=== PATIENT | female | born 1960 | race Caucasian/White ===

== ENCOUNTER → 2016-12-10 | Outpatient (CLI) | payer OTHER ==
--- NOTE | 2016-12-10 10:36 | RADRPT ---
EXAM DATE/TIME: 12/10/2016 10:20 [facility] COMPARISON: No previous studies available for comparison. INDICATIONS : Cough, past positive ppd. MEDICAL HISTORY : smoker SURGICAL HISTORY : None. ENCOUNTER: Initial ACUITY: 1 day PAIN SCORE: 0/10 LOCATION: Bilateral chest FINDINGS: PA and lateral views of the chest demonstrate the lungs to be symmetrically aerated without evidence of mass, infiltrate or effusion. The cardiomediastinal contours are unremarkable. Osseous structure s are intact. CONCLUSION: No acute disease. Alexi Breaux MD FACR on December 10, 2016 at 10:34 Board Certified Radiologist. This report was verified electronically.
--- NOTE | 2016-12-10 11:10 | RADRPT ---
EXAM DATE/TIME: 12/10/2016 09:06 [facility] COMPARISON: No previous studies available for comparison. INDICATIONS : Abdominal pain. MEDICAL HISTORY : Hypercholesterolemia. HIV. Neuropathy. SURGICAL HISTORY : Total knee replacement, left. Hysterectomy. Cholecystectomy. ENCOUNTER: Initial ACUITY: 3 months PAIN SCORE: 2/10 LOCATION: Abdomen. MEASUREMENTS: LIVER: 18.5 cm length COMMON DUCT: 4 mm RIGHT KIDNEY: 13.2 x 6.9 x 6.9 cm SPLEEN: 14.9 cm length FINDINGS: LIVER: Liver echotexture is heterogeneous and diffusely hyperechoic. There are no discrete space occupying l esions or biliary duct dilatation. COMMON DUCT: No intraluminal mass or stone visualized. GALLBLADDER: Contains no stones, demonstrates no wall thickening or pericholecystic fluid. A small hyperechoic no dule is seen along the anterior wall of the gallbladder. PANCREAS: The visualized portions are within normal limits. RIGHT KIDNEY: No hydronephrosis, stone or mass. A 1 cm simple cyst is seen along the lateral cortex. SPLEEN: No focal lesion. CONCLUSION: 1. Heterogeneous hyperechoic texture characteristic of steatosis. 2. Non-mobile small hyperechoic nodule in the gallbladder characteristic of a small polyp. 3. No evidence of cholelithiasis or acute process. 4. Small simple right renal cyst. Sang Graves MD on December 10, 2016 at 10:53 Board Certified Radiologist. This report was verified electronically.
== END ==
LOC: HRAD 08:35
DX: R10.84 Generalized abdominal pain (principal); R05 Cough; Z86.19 Personal history of other infectious and parasitic diseases
CPT/HCPCS: 71020; 76705

== ENCOUNTER → 2017-02-23 | Outpatient (CLI) | payer OTHER ==
[~2017-02-23] MED LIST: DIPH25TA; HIV; PRED20 PO
--- NOTE | 2017-02-23 14:14 | RADRPT ---
EXAM DATE/TIME: 02/23/2017 13:26 [facility] COMPARISON: No previous studies available for comparison. INDICATIONS : Right hip pain, no injury. MEDICAL HISTORY : None. SURGICAL HISTORY : None. ENCOUNTER: Initial ACUITY: 3 months PAIN SCORE: 5/10 LOCATION: Right proximal hip FINDINGS: A two view examination of the right hip was performed. The primary and secondary trabecular pattern of the femoral neck is intact. Moderate to severe joint space narrowing with associated osteophyte fo rmation. The acetabulum is grossly intact. CONCLUSION: 1. Moderate to severe degenerative osteoarthritis. García Hunt MD on February 23, 2017 at 14:12 Board Certified Radiologist. This report was verified electronically.
--- NOTE | 2017-02-23 14:22 | RADRPT ---
EXAM DATE/TIME: 02/23/2017 13:29 [facility] COMPARISON: No previous studies available for comparison. INDICATIONS : Right knee pain, no injury. MEDICAL HISTORY : None. SURGICAL HISTORY : None. ENCOUNTER: Initial ACUITY: 1 day PAIN SCORE: 8/10 LOCATION: Right lateral knee FINDINGS: 4 views of the right knee were performed. There is tricarparmental joint space loss with osteophyte f ormation most prominently in the medial compartment. Corticated osseous fragment along the medial sup erior patella may reflect sequela of prior injury. Mild chondrocalcinosis most prominently in the lat eral compartment. No significant suprapatellar effusion or soft tissue abnormality. CONCLUSION: 1. Tricompartmental degenerative osteoarthritis, most prominently in the medial compartment. 2. Mild chondrocalcinosis most prominently in the lateral compartment consistent with calcium crystal line deposition. García Hunt MD on February 23, 2017 at 14:12 Board Certified Radiologist. This report was verified electronically.
== END ==
LOC: HRAD 13:09
DX: M19.90 Unspecified osteoarthritis, unspecified site (principal); M25.50 Pain in unspecified joint
CPT/HCPCS: 73502; 73564

== ENCOUNTER 2017-02-25 15:46 | Emergency (ER) | payer OTHER ==
[~2017-02-25] VITALS: Ht 162.6 cm; Wt 110.0 kg
[2017-02-25 15:47] VITALS: BP 194/86; PULSE 108; RESP 20; TEMP 98.7; O2SAT 97
[2017-02-25] MEDS ORDERED: HIV (16:00)
--- NOTE | 2017-02-25 16:00 | PD ---
HPI Chief Complaint: Injury Time Seen by Provider: 15:59 Travel History International Travel<30 days: No Contact w/Intl Traveler<30days: No Traveled to known affect area: No History of Present Illness HPI 56-year-old female presents the emergency department status post fall off her porch 5 days ago. Patient states a history of total knee replacement on the left in 2008 when she lived in [place]. Patient states since she fell she's had pain with the movement of the left knee along the medial aspect, as well as in the left hip which is worse with rotation or flexion. Patient denies numbness, tingling, or back pain. Patient is able to ambulate with difficulty secondary to pain. There is no obvious loss of function. Pain currently is about an 8 out of 10 when trying to ambulate. At rest it is 4 out of 10. She has no known drug allergies PFSH Social History Alcohol Use: Yes Tobacco Use: No Substance Use: No Allergies-Medications (Allergen,Severity, Reaction): Coded Allergies: No Known Allergies (Unverified , 02/25/17) Reported Meds & Prescriptions Reported Meds & Active Scripts Active Reported Sleep Tablet (Diphenhydramine HCl) 25 Mg Tablet Unknown Dose [Hiv] Review of Systems Except as stated in HPI: all other systems reviewed are Neg General / Constitutional: No: Fever Eyes: No: Visual changes HENT: No: Headaches Cardiovascular: No: Chest Pain or Discomfort Respiratory: No: Shortness of Breath Gastrointestinal: No: Abdominal Pain Genitourinary: No: Dysuria Musculoskeletal: Positive: Myalgias, Arthralgias, Limited ROM, Pain (see history of present illness) Skin: No Rash Neurologic: No: Weakness Psychiatric: No: Depression Endocrine: No: Polydipsia Hematologic/Lymphatic: No: Easy Bruising Physical Exam Narrative GENERAL: Patient appears in mild to moderate distress. SKIN: Warm and dry. Normal color. Normal turgor. No open wounds, abrasions, or ecchymosis. HEAD: Atraumatic. Normocephalic. EYES: Pupils equal and round. No scleral icterus. No injection or drainage. ENT: No nasal bleeding or discharge. Mucous membranes pink and moist. Pharynx is clear. Airway is patent. NECK: Trachea midline. Supple and nontender. CARDIOVASCULAR: Regular rate and rhythm. RESPIRATORY: No accessory muscle use. Clear to auscultation. Breath sounds equal bilaterally. MUSCULOSKELETAL: Extremities without clubbing, cyanosis, or edema. No obvious deformities. Patient has pain with internal rotation of the lower leg along the left lateral knee. The knee itself is not tender with palpation. There is no appreciable laxity. Patient also has increased pain with rotation of the left hip medially and laterally. Again no increased pain with palpation to the greater trochanter or sacroiliac region of the hip. There is no obvious loss of function although flexion of the hip against resistance as well as lateral rotation against resistance causes pain. There is no bony lumbar pain or obvious deformity. NEUROLOGICAL: Awake and alert. No obvious cranial nerve deficits. Motor grossly within normal limits. Five out of 5 muscle strength in the arms and legs. Normal speech. PSYCHIATRIC: Appropriate mood and affect; insight and judgment normal. Data Data Last Documented VS Vital Signs Date Time Temp Pulse Resp B/P (MAP) Pulse Ox O2 Delivery O2 Flow Rate FiO2 02/25/17 15:47 98.7 108 20 194/86 (122) 97 Room Air Orders Orders Hip, Uni(Ap&Lat) W Ap Pelvis (02/25/17 16:04) Knee, Complete (4vws) (02/25/17 16:04) Ice/Cold Pack (02/25/17 16:04) Prednisone (Deltasone) (02/25/17 17:00) MDM Medical Decision Making Medical Screen Exam Complete: Yes Emergency Medical Condition: Yes Differential Diagnosis Fall. Left knee pain. Left hip pain. Left knee strain. Left hip strain. Possible fracture. Narrative Course Patient is medically stable at time of exam. X-rays of the left hip and knee are ordered. X-ray showed arthritis but no acute process per radiologist. Patient is given prednisone 40 mg by mouth now. Patient is continued on prednisone 20 mg twice a day 5 days. Patient can take her oxycodone fives which she has at home. Patient follow with her primary care physician as needed. Diagnosis Primary Impression: Fall (on) (from) other stairs and steps, initial encounter Additional Impressions: Strain of left knee Qualified Codes: S86.912A - Strain of unspecified muscle(s) and tendon(s) at lower leg level, left leg, initial encounter Strain of left hip Qualified Codes: S76.012A - Strain of muscle, fascia and tendon of left hip, initial encounter Referrals: Primary Care Physician Patient Instructions: Arthritis (ED), General Instructions, Knee Pain (ED) Additional Instructions: X-ray showed arthritis but no acute process per radiologist. Patient is given prednisone 40 mg by mouth now. Patient is continued on prednisone 20 mg twice a day 5 days. Patient can take her oxycodone fives which she has at home. Patient follow with her primary care physician as needed. Med/Other Pt SpecificInfo: Prescription(s) given Disposition: DISCHARGE HOME Condition: Stable Sonido Webber Feb 25, 2017 16:00
[2017-02-25] MEDS ORDERED: DIPH25TA (16:01)
[2017-02-25] MEDS ORDERED: PRED20 PO (16:58)
--- NOTE | 2017-02-25 16:58 | RADRPT ---
EXAM DATE/TIME: 02/25/2017 16:37 [facility] COMPARISON: No previous studies available for comparison. INDICATIONS : Left hip pain since falling 5 days ago. MEDICAL HISTORY : Hypercholesterolemia. HIV. Neuropathy. SURGICAL HISTORY : Total knee replacement, left. Hysterectomy. Cholecystectomy. ENCOUNTER: Initial ACUITY: 4 - 6 days PAIN SCORE: 10/10 LOCATION: Left hip. FINDINGS: Examination of the left hip was performed with AP Pelvis. Degenerative arthritic changes are seen in both hips, right worse than left with loss of joint space superiorly. Near [id number] articulation on the right. Otherwise, cortical margins are otherwise intact with no acute fracture. CONCLUSION: 1. Degenerative osteoarthritic changes in both hips, right worse than left. 2. No acute fracture. Parveen Chu MD on February 25, 2017 at 16:54 Board Certified Radiologist. This report was verified electronically.
--- NOTE | 2017-02-25 16:58 | RADRPT ---
EXAM DATE/TIME: 02/25/2017 16:37 [facility] COMPARISON: No previous studies available for comparison. INDICATIONS : Left hip pain since falling 5 days ago. MEDICAL HISTORY : Hypercholesterolemia. HIV. Neuropathy. SURGICAL HISTORY : Total knee replacement, left. Hysterectomy. Cholecystectomy. ENCOUNTER: Initial ACUITY: 4 - 6 days PAIN SCORE: 10/10 LOCATION: Left hip. FINDINGS: Examination of the left hip was performed with AP Pelvis. Degenerative arthritic changes are seen in both hips, right worse than left with loss of joint space superiorly. Near [id number]-[id number] articulation on the right. Otherwise, cortical margins are otherwise intact with no acute fracture. CONCLUSION: 1. Degenerative osteoarthritic changes in both hips, right worse than left. 2. No acute fracture. Parveen Chu MD on February 25, 2017 at 16:54 Board Certified Radiologist. This report was verified electronically.
--- NOTE | 2017-02-25 16:58 | RADRPT ---
EXAM DATE/TIME: 02/25/2017 16:37 [facility] COMPARISON: No previous studies available for comparison. INDICATIONS : Left hip pain since falling 5 days ago. MEDICAL HISTORY : Hypercholesterolemia. HIV. Neuropathy. SURGICAL HISTORY : Total knee replacement, left. Hysterectomy. Cholecystectomy. ENCOUNTER: Initial ACUITY: 4 - 6 days PAIN SCORE: 10/10 LOCATION: Left hip. FINDINGS: Examination of the left hip was performed with AP Pelvis. Degenerative arthritic changes are seen in both hips, right worse than left with loss of joint space superiorly. Near [id number] articulation on the right. Otherwise, cortical margins are otherwise intact with no acute fracture. CONCLUSION: 1. Degenerative osteoarthritic changes in both hips, right worse than left. 2. No acute fracture. Parveen Chu MD on February 25, 2017 at 16:54 Board Certified Radiologist. This report was verified electronically.
[2017-02-25] MEDS ORDERED: predniSONE 20 MG TAB PO ONE (17:00)
--- NOTE | 2017-02-25 17:03 | RADRPT ---
EXAM DATE/TIME: 02/25/2017 16:38 [facility] COMPARISON: No previous studies available for comparison. INDICATIONS : Left knee pain since falling 5 days ago. MEDICAL HISTORY : Hypercholesterolemia. HIV. Neuropathy. SURGICAL HISTORY : Total knee replacement, left. Hysterectomy. Cholecystectomy. ENCOUNTER: Initial ACUITY: 4 - 6 days PAIN SCORE: 7/10 LOCATION: Left knee. FINDINGS: Four view examination of the left knee demonstrates total knee arthroplasty. No fracture or effusion. CONCLUSION: Intact total knee arthroplasty without fracture or effusion. Parveen Chu MD on February 25, 2017 at 16:56 Board Certified Radiologist. This report was verified electronically.
== END 2017-02-25 17:12 | disposition home or self-care (01) ==
LOC: NEPK 15:46
DX: S86.912A Strain of unspecified muscle(s) and tendon(s) at lower leg level, left leg, initial encounter (principal); S76.012A Strain of muscle, fascia and tendon of left hip, initial encounter; Z96.652 Presence of left artificial knee joint; W19.XXXA Unspecified fall, initial encounter
CPT/HCPCS: 73502; 73564; 99283; J7512

== ENCOUNTER 2017-05-24 12:30 | Emergency (ER) | payer OTHER ==
[~2017-05-24] VITALS: Ht 162.6 cm; Wt 100.0 kg
[2017-05-24 12:32] VITALS: BP 142/72; PULSE 107; RESP 14; TEMP 98; O2SAT 97
--- NOTE | 2017-05-24 13:41 | PD ---
HPI Chief Complaint: Musculoskeletal Complaint Time Seen by Provider: 13:26 Travel History International Travel<30 days: No Contact w/Intl Traveler<30days: No Traveled to known affect area: No History of Present Illness HPI The patient was seen and examined in the presence of the nurse. This patient complains of pain in her right groin for 3 weeks. Denies injury. Symptoms severity is moderate. No alleviating factors. PFSH Past Medical History Diabetes: Yes Social History Alcohol Use: Yes Tobacco Use: No Substance Use: No Allergies-Medications (Allergen,Severity, Reaction): Coded Allergies: No Known Allergies (Unverified , 02/25/17) Reported Meds & Prescriptions Reported Meds & Active Scripts Active Prednisone 20 Mg Tab 20 Mg PO BID 5 Days Reported Sleep Tablet (Diphenhydramine HCl) 25 Mg Tablet Unknown Dose [Hiv] Review of Systems General / Constitutional: No: Fever Eyes: No: Visual changes HENT: No: Headaches Cardiovascular: No: Chest Pain or Discomfort Respiratory: No: Shortness of Breath Gastrointestinal: No: Abdominal Pain Genitourinary: No: Dysuria Musculoskeletal: Positive: Pain Skin: No Rash Neurologic: No: Weakness Psychiatric: No: Depression Endocrine: No: Polydipsia Hematologic/Lymphatic: No: Easy Bruising Physical Exam Narrative GASTROINTESTINAL: Abdomen soft, non-tender, nondistended. Positive bowel sounds. No hepato-splenomegaly, or palpable masses. No guarding. SKIN: Focused skin assessment reveals no rash or ulcers. Skin is warm and dry. Palpation shows no induration or nodules. Groin: No pulsatile mass or erythema or bruising No pelvis instability Data Data Last Documented VS Vital Signs Date Time Temp Pulse Resp B/P (MAP) Pulse Ox O2 Delivery O2 Flow Rate FiO2 05/24/17 12:40 16 05/24/17 12:32 98.0 107 142/72 (95) 97 Orders Orders Pelvis, Ap Only (Routine) (05/24/17 ) Femur (Ap & Lat/2vws) (05/24/17 ) MDM Medical Decision Making Medical Screen Exam Complete: Yes Emergency Medical Condition: Yes Medical Record Reviewed: Yes Differential Diagnosis Pelvic fracture, groin strain, hip fracture Narrative Course I have reviewed the patient's electronic medical record. I reviewed her pelvis x-ray which shows no fracture I reviewed her right femur x-rays which shows no fracture She has degenerative arthritis in the right hip On clinical basis I suspect soft tissue groin injury. Supportive care discussed The patient was advised to follow up with their physician and return if they worsen. Diagnosis Primary Impression: Right inguinal pain Additional Impression: Osteoarthritis of right hip Qualified Codes: M16.11 - Unilateral primary osteoarthritis, right hip Additional Instructions: The patient was advised to follow up with their physician and return if they worsen. Med/Other Pt SpecificInfo: Other Disposition: 01 DISCHARGE HOME Condition: Stable Jonh Storm MD May 24, 2017 13:41
--- NOTE | 2017-05-24 14:38 | RADRPT ---
EXAM DATE/TIME: 05/24/2017 14:03 [facility] COMPARISON: No previous studies available for comparison. INDICATIONS : Pain with no known injury. MEDICAL HISTORY : Asthma. SURGICAL HISTORY : None. ENCOUNTER: Initial ACUITY: 3 weeks PAIN SCORE: 9/10 LOCATION: Right Pelvis FINDINGS: No definite fractures, dislocations, lytic, or sclerotic lesions are seen. Extensive and far advanced osteoarthritis is seen in the right hip joint. There is slight osteoarthritis in the left hip joint. CONCLUSION: Osteoarthritis worse on the right. KTimur Colon MD on May 24, 2017 at 14:35 Board Certified Radiologist. This report was verified electronically.
--- NOTE | 2017-05-24 14:40 | RADRPT ---
EXAM DATE/TIME: 05/24/2017 14:04 [facility] COMPARISON: No previous studies available for comparison. INDICATIONS : Pain with no known injury. MEDICAL HISTORY : Asthma SURGICAL HISTORY : None. ENCOUNTER: Initial ACUITY: 3 weeks PAIN SCORE: 9/10 LOCATION: Right Femur. FINDINGS: There is a tiny joint effusion. Well-corticated bony densities present towards the lateral aspect of the patella has the appearance of a bipartite patella measures 1.5 cm. There is osteopenia. CONCLUSION: No definite fracture is seen for technique. KTimur Colon MD on May 24, 2017 at 14:36 Board Certified Radiologist. This report was verified electronically.
== END 2017-05-24 15:32 | disposition home or self-care (01) ==
LOC: NEPD 12:30
DX: R10.9 Unspecified abdominal pain (principal); M16.11 Unilateral primary osteoarthritis, right hip; E11.9 Type 2 diabetes mellitus without complications
CPT/HCPCS: 72170; 73552; 99284

== ENCOUNTER 2017-06-20 11:41 | Emergency (ER) | payer OTHER ==
[~2017-06-20] VITALS: Ht 162.6 cm; Wt 108.0 kg
[2017-06-20 11:44] VITALS: BP 118/74; PULSE 101; RESP 18; TEMP 98.3; O2SAT 98
--- NOTE | 2017-06-20 12:40 | PD ---
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 Patient states she was feeling patient tender when she pushed the small tray out of the way she fell forward somehow hitting her left lateral shoulder, right knee, and left knee as well. Patient now has pain in the left lateral shoulder, right knee, but not the left knee, although she is concerned about as it has been replaced in the past. She denies hitting her head or loss of consciousness. She has no neck pain or abdominal and thoracic complaints. She has no known drug allergies. PFSH Past Medical History Diabetes: Yes Patient Takes Glucophage: No Immune Disorder: Yes (HIV) Musculoskeletal: Yes (KNEE REPLACEMENT (LEFT) IN 2008) Reproductive: Yes (HYSTERECTOMY 2001) Social History Alcohol Use: Yes Tobacco Use: No Substance Use: No Allergies-Medications (Allergen,Severity, Reaction): Coded Allergies: No Known Allergies (Unverified , 02/25/17) Reported Meds & Prescriptions Reported Meds & Active Scripts Active Prednisone 20 Mg Tab 20 Mg PO BID 5 Days Reported Sleep Tablet (Diphenhydramine HCl) 25 Mg Tablet Unknown Dose [Hiv] Review of Systems Except as stated in HPI: all other systems reviewed are Neg General / Constitutional: No: Fever Eyes: No: Visual changes HENT: No: Headaches Cardiovascular: No: Chest Pain or Discomfort Respiratory: No: Shortness of Breath Gastrointestinal: No: Abdominal Pain Genitourinary: No: Dysuria Musculoskeletal: Positive: Myalgias, Arthralgias, Limited ROM, Pain Skin: No Rash Neurologic: No: Weakness Psychiatric: No: Depression Endocrine: No: Polydipsia Hematologic/Lymphatic: No: Easy Bruising Physical Exam Narrative GENERAL: Patient appears in mild distress. She is mildly anxious. SKIN: Warm and dry. Normal color. Normal turgor. Patient has bruising to the left lateral shoulder. HEAD: Atraumatic. Normocephalic. EYES: Pupils equal and round. No scleral icterus. No injection or drainage. ENT: No nasal bleeding or discharge. Mucous membranes pink and moist. Pharynx is clear. Airway is patent. NECK: Trachea midline. Supple and nontender. CARDIOVASCULAR: Regular rate and rhythm. RESPIRATORY: No accessory muscle use. Clear to auscultation. Breath sounds equal bilaterally. GASTROINTESTINAL: Abdomen soft, non-tender, nondistended. Hepatic and splenic margins not palpable. MUSCULOSKELETAL: Extremities without clubbing, cyanosis, or edema. No obvious deformities. Patient has full range of motion of all extremities. Patient complains of discomfort with palpation to the left shoulder as well as the right anterior knee without obvious signs of fracture or dislocation. X-rays ordered. NEUROLOGICAL: Awake and alert. No obvious cranial nerve deficits. Motor grossly within normal limits. Five out of 5 muscle strength in the arms and legs. Normal speech. PSYCHIATRIC: Appropriate mood and affect; insight and judgment normal. Data Data Last Documented VS Vital Signs Date Time Temp Pulse Resp B/P (MAP) Pulse Ox O2 Delivery O2 Flow Rate FiO2 06/20/17 11:44 98.3 101 18 118/74 (89) 98 Orders Orders Knee, Ltd (1 Or 2vws) (06/20/17 12:43) Shoulder, Complete (>2vws) (06/20/17 12:43) Ibuprofen (Motrin) (06/20/17 12:45) Acetaminophen (Tylenol) (06/20/17 12:45) Ibuprofen (Motrin) (06/20/17 12:45) Ankle, Complete (Fqx2sek) (06/20/17 12:59) Hip, Uni(Ap&Lat) Wo Ap Pelvis (06/20/17 12:59) Knee, Complete (4vws) (06/20/17 12:59) MDM Medical Decision Making Medical Screen Exam Complete: Yes Emergency Medical Condition: Yes Differential Diagnosis Fall. Multiple contusions. Possible fracture. Narrative Course Patient is medically stable at time of exam. Patient is given 600 mg ibuprofen as well as 650 mg acetaminophen by mouth. X-rays of the left shoulder, left and right knee, right ankle, right ankle and right hip are ordered. Patient will be sent home on ibuprofen 600 mg 3 times daily #30. Patient can take acetaminophen 500 mg every 6 hours as needed. Patient should use heat followed by ice and follow-up with her primary care physician as needed. Diagnosis Primary Impression: Multiple contusions Additional Impression: Fall Qualified Codes: W19.XXXA - Unspecified fall, initial encounter Referrals: Primary Care Physician Patient Instructions: Contusion in Adults (ED), General Instructions Additional Instructions: X-rays of the left shoulder, left and right knee, right ankle, right ankle and right hip are ordered. Patient will be sent home on ibuprofen 600 mg 3 times daily #30. Patient can take acetaminophen 500 mg every 6 hours as needed. Patient should use heat followed by ice and follow-up with her primary care physician as needed. Med/Other Pt SpecificInfo: Prescription(s) given Disposition: 01 DISCHARGE HOME Condition: Stable Sonido Webber Jun 20, 2017 12:40
[2017-06-20] MEDS ORDERED: ACETAMINOPHEN 325 MG TAB PO ONE (12:45)
[2017-06-20] MEDS ORDERED: IBUPROFEN 600 MG TAB PO ONE ×2 (12:45)
--- NOTE | 2017-06-20 14:03 | RADRPT ---
EXAM DATE/TIME: 06/20/2017 13:13 [facility] COMPARISON: No previous studies available for comparison. INDICATIONS : Pain from fall on right side, trauma against left should from desk. MEDICAL HISTORY : None. SURGICAL HISTORY : None. ENCOUNTER: Initial ACUITY: 1 day PAIN SCORE: 9/10 LOCATION: Right anteriolateral aspect. FINDINGS: Zqhy-cg-[id number] degenerative osteoarthritis of all 3 compartments. Well-corticated superior patellar fragment which may reflect sequela of prior injury. No acute fracture. No significant effusion. Soft tissues are unremarkable. CONCLUSION: 1. No acute fracture or dislocation. 2. Ydkv-dy-ywimuydg tricompartmental degenerative osteoarthritis. García Hunt MD on June 20, 2017 at 14:00 Board Certified Radiologist. This report was verified electronically.
--- NOTE | 2017-06-20 14:04 | RADRPT ---
EXAM DATE/TIME: 06/20/2017 13:13 [facility] COMPARISON: KNEE LEFT COMPLETE (4VWS), February 25, 2017, 16:38. INDICATIONS : Pain from fall on right side, trauma against left should from desk. MEDICAL HISTORY : None. SURGICAL HISTORY : Knee replacement, left. ENCOUNTER: Initial ACUITY: 1 day PAIN SCORE: 3/10 LOCATION: Left medial knee. FINDINGS: Stable left knee arthroplasty in place. No evidence for acute bony fracture or focal bony destruction . No significant new grzegorz-hardware lucency. No significant new effusion. Soft tissues are unremarkabl e. CONCLUSION: 1. Stable left knee arthroplasty without evidence for hardware failure. 2. No acute fracture or dislocation. García Hunt MD on June 20, 2017 at 14:01 Board Certified Radiologist. This report was verified electronically.
--- NOTE | 2017-06-20 14:05 | RADRPT ---
EXAM DATE/TIME: 06/20/2017 13:14 [facility] COMPARISON: No previous studies available for comparison. INDICATIONS : Pain from fall on right side, trauma against left should from desk. MEDICAL HISTORY : None. SURGICAL HISTORY : None. ENCOUNTER: Initial ACUITY: 1 day PAIN SCORE: 7/10 LOCATION: Left shoulder, proximal lateral and medial aspects. FINDINGS: Multiple view examination of the left shoulder demonstrates no evidence of fracture or dislocation. The glenohumeral and acromioclavicular joints are anatomic. Degenerative changes of the a.c. joint. There is normal range of motion between internal and external rotation. Bony mineralization is candy l. CONCLUSION: 1. No acute fracture or dislocation. 2. Degenerative changes of the a.c. joint. García Hunt MD on June 20, 2017 at 14:03 Board Certified Radiologist. This report was verified electronically.
--- NOTE | 2017-06-20 14:06 | RADRPT ---
EXAM DATE/TIME: 06/20/2017 13:19 [facility] COMPARISON: HIP RIGHT (AP&LAT 2/3VWS) WO AP PELVIS, February 23, 2017, 13:26. INDICATIONS : Pain from fall on right side. MEDICAL HISTORY : None. SURGICAL HISTORY : None. ENCOUNTER: Initial ACUITY: 1 day PAIN SCORE: 6/10 LOCATION: Right hip. FINDINGS: A two view examination of the right hip was performed. The primary and secondary trabecular pattern of the femoral neck is intact. Severe joint space narrowing with associated subchondral sclerosis and osteophytes. The acetabulum is grossly intact. CONCLUSION: 1. No acute fracture or dislocation. 2. Severe degenerative osteoarthritis. García Hunt MD on June 20, 2017 at 14:03 Board Certified Radiologist. This report was verified electronically.
--- NOTE | 2017-06-20 14:07 | RADRPT ---
EXAM DATE/TIME: 06/20/2017 13:26 [facility] COMPARISON: No previous studies available for comparison. INDICATIONS : Pain from fall on right side. MEDICAL HISTORY : None. SURGICAL HISTORY : None. ENCOUNTER: Initial ACUITY: 1 day PAIN SCORE: 6/10 LOCATION: Right lateral ankle. FINDINGS: Three view exam was performed of the right ankle. The bony structures are in normal alignment. No e vidence of fracture, dislocation, or soft tissue swelling. The ankle mortise is intact. No radiopaq ue foreign bodies are seen. Bony mineralization is normal. CONCLUSION: 1. No acute fracture or dislocation. García Hunt MD on June 20, 2017 at 14:04 Board Certified Radiologist. This report was verified electronically.
[2017-06-20] MEDS ORDERED: MAPA500T13 PO (14:46)
[2017-06-20] MEDS ORDERED: IBUP-232 PO (14:46)
== END 2017-06-20 14:58 | disposition home or self-care (01) ==
LOC: NEPD 11:41
DX: M17.11 Unilateral primary osteoarthritis, right knee (principal); M19.012 Primary osteoarthritis, left shoulder; M16.11 Unilateral primary osteoarthritis, right hip; E11.9 Type 2 diabetes mellitus without complications; M79.1 Myalgia; Z21 Asymptomatic human immunodeficiency virus [HIV] infection status
CPT/HCPCS: 73030; 73502; 73560; 73564; 73610; 99284

== ENCOUNTER → 2017-09-21 | Outpatient (CLI) | payer OTHER ==
[~2017-09-21] MED LIST changes: +IBUP-232 PO; +MAPA500T13 PO
--- NOTE | 2017-09-22 12:21 | RADRPT ---
EXAM DATE/TIME: 09/21/2017 17:27 [facility] COMPARISON: No previous studies available for comparison. INDICATIONS : Osteoarthritis. MEDICAL HISTORY : None. SURGICAL HISTORY : Hysterectomy. Knee replacement. ENCOUNTER: Initial ACUITY: 7-11 months PAIN SCORE: 7/10 LOCATION: Right knee TECHNIQUE: Multiplanar, multisequence MRI examination was performed without contrast. FINDINGS: BONE/CARTILAGE: Severe diffuse articular cartilage thinning, moderate size osteophytes and subchondral bony changes of the right hip. LABRUM: Diffuse degenerative change. MUSCLES/TENDONS: All of the visualized muscles and tendons are intact. MISCELLANEOUS: Large joint effusion. CONCLUSION: Severe right hip osteoarthritis and large right hip joint effusion. Catrachito Saenz MD on September 22, 2017 at 12:15 Board Certified Radiologist. This report was verified electronically.
== END ==
LOC: HRAD 16:35
DX: M25.551 Pain in right hip (principal); M19.90 Unspecified osteoarthritis, unspecified site; M25.50 Pain in unspecified joint; E66.01 Morbid (severe) obesity due to excess calories
CPT/HCPCS: 73721

== ENCOUNTER 2017-10-26 18:11 | Emergency (ER) | payer OTHER ==
[~2017-10-26] VITALS: Ht 162.6 cm; Wt 97.0 kg
[2017-10-26 18:19] VITALS: BP 133/67; PULSE 98; RESP 14; TEMP 98.2; O2SAT 98
[2017-10-26] MEDS ORDERED: MAGICADU2 SWISH-SWAL (18:49)
--- NOTE | 2017-10-26 18:49 | PD ---
HPI Chief Complaint: ENT Complaint Time Seen by Provider: 18:40 Travel History International Travel<30 days: No Contact w/Intl Traveler<30days: No Traveled to known affect area: No History of Present Illness HPI 56-year-old female with history of hypertension, diabetes, HIV, presents emergency department for evaluation of a white coat on her tongue and burning sensation of her oral cavity 3 days. She denies any fever or chills. She denies any other symptoms at this time. PFSH Past Medical History Diabetes: Yes Immune Disorder: Yes (HIV) Musculoskeletal: Yes (KNEE REPLACEMENT (LEFT) IN 2008) Reproductive: Yes (HYSTERECTOMY 2001) ?: Not Past Surgical History Hysterectomy: Yes Social History Alcohol Use: Yes Tobacco Use: No Substance Use: No Allergies-Medications (Allergen,Severity, Reaction): Coded Allergies: No Known Allergies (Unverified , 02/25/17) Reported Meds & Prescriptions Reported Meds & Active Scripts Active Magic Mouthwash Adult Liq (Multi-Ingredient Mouthwash/Gargle) 120 Ml Susp 10 Ml SWISH-SWAL ACHS Each 5mL contains: Nystatin 200,000units, Diphenhydramine 4.25mg, Viscous Lidocaine 10mg, Cano syrup 0.8 mL Mapap Extra Strength (Acetaminophen) 500 Mg Tab 1,000 Mg PO Q4-6H PRN Ibuprofen 600 Mg Tab 600 Mg PO Q8H PRN Prednisone 20 Mg Tab 20 Mg PO BID 5 Days Reported Sleep Tablet (Diphenhydramine HCl) 25 Mg Tablet Unknown Dose [Hiv] Review of Systems Except as stated in HPI: all other systems reviewed are Neg Physical Exam Narrative GENERAL: Well-nourished, well-developed female patient in no acute distress SKIN: Focused skin assessment warm/dry. HEAD: Normocephalic. EYES: No scleral icterus. No injection or drainage. ENT: Mucosa pink and moist. Mild erythema. There is a weight coat over the tongue. No uvular edema. No uvular, palatal, or tonsillar deviation. Airway patent. Nasal turbinates appear normal without nasal blood, purulent drainage or septal hematoma. NECK: Supple, trachea midline. No JVD or lymphadenopathy. CARDIOVASCULAR: Regular rate and rhythm without murmurs, gallops, or rubs. RESPIRATORY: Breath sounds equal bilaterally. No accessory muscle use. Data Data Last Documented VS Vital Signs Date Time Temp Pulse Resp B/P (MAP) Pulse Ox O2 Delivery O2 Flow Rate FiO2 10/26/17 18:19 98.2 98 14 133/67 (89) 98 Orders Orders Ed Discharge Order (10/26/17 18:47) MDM Medical Decision Making Medical Screen Exam Complete: Yes Emergency Medical Condition: Yes Medical Record Reviewed: Yes Differential Diagnosis Oral candidiasis versus leukoplakia versus poor hygiene Narrative Course 56-year-old female presents emergency department for evaluation of a coat on her tongue x 3 days. Pt appears well. Physical findings consistent with oral thrush. Pt will be discharged Diagnosis Primary Impression: Oral thrush Referrals: Primary Care Physician Patient Instructions: General Instructions, Oral Candidiasis (ED) Additional Instructions: Follow-up with a primary care provider Return immediately with acute worsening symptoms Med/Other Pt SpecificInfo: Prescription(s) given Scripts Eqdsezsh-Ecnbldpgfkgfwcu-Vgnnuetgw Liq (Magic Mouthwash Adult Liq) 120 Ml Susp 10 ML SWISH-SWAL ACHS for Mouth sores, #120 ML 0 Refills Each 5mL contains: Nystatin 200,000units, Diphenhydramine 4.25mg, Viscous Lidocaine 10mg, Cano syrup 0.8 mL Prov: Myriam Barrientos 10/26/17 Disposition: 01 DISCHARGE HOME Condition: Stable Myriam Barrientos Oct 26, 2017 18:49
== END 2017-10-26 19:40 | disposition home or self-care (01) ==
LOC: NEPK 18:11
DX: B20 Human immunodeficiency virus [HIV] disease (principal); B37.0 Candidal stomatitis
CPT/HCPCS: 99283

== ENCOUNTER 2018-06-24 05:14 | Inpatient (IN) ==
[2018-06-24] MEDS ORDERED: Chlorhexidine Gluconate 2% 1 Pack (2 Cloths) TOPICAL ONE (05:39)
[2018-06-24] MEDS ORDERED: Metoprolol Tartrate 25 MG Tablet PO ONE (05:39)
[2018-06-24] MEDS ORDERED: Sodium Chlor 0.9% Inj 60 ML, Bupivacaine Liposo PF 1.3% Inj 20 ML, Bupivacaine/Epi PF 0... P-ARTICULR SCH ×3 (05:43)
[2018-06-24] MEDS ORDERED: Chlorhexidine 4% Topical 120 APPLIC/120 ML Bottle TOPICAL SCH (05:45)
[2018-06-24] MEDS ORDERED: Vancomycin Inj 1,000 MG in Sodium Chlor 0.9% Inj 250 ML IV.SIG SCH (06:00)
[2018-06-24] MEDS ORDERED: ceFAZolin 2 GM Premix Inj 2 GM/50 ML PIGGYBACK IV.SIG SCH (06:00)
[2018-06-24] MEDS ORDERED: Sodium Chlor 0.9% Inj 500 ML IV.SIG SCH (06:00)
[2018-06-24] MEDS ORDERED: SODIUM CHLOR 0.9% IV.SIG SCH (06:00)
[2018-06-24] MEDS ORDERED: TRANEXAMIC ACID IV.SIG SCH (06:00)
[2018-06-24 06:01] LABS: Bilirubin,Urine Negative (Negative); Clarity,Urine Hazy (Clear); Color,Urine Yellow (Yellw/Straw); Glucose,Urine (UA) Negative (Negative); Leukocyte Esterase,Urine Trace (Negative); Mucus,Urine Few /lpf (Occasional); Nitrite,Urine Negative (Negative); Specific Gravity,Urine 1.017 (1.002-1.035); Squamous Epithelial Cell,Urine <1 /hpf (0-5)
[2018-06-24] MEDS ORDERED: Sugammadex Inj 200 MG/2 ML Vial IV.PUSH ONE (07:07)
[2018-06-24] MEDS ORDERED: Lidocaine PF 1% Inj 5 ML Syringe OTHER ONE (07:28)
[2018-06-24] MEDS ORDERED: Phenylephrine/NS 1000 MCG/10ML Syringe IV.PUSH ONE (07:28)
[2018-06-24] MEDS ORDERED: [UNRECOGNIZED DRUG - OTHER] IRRIGATION ONE ×3 (08:28)
[2018-06-24] MEDS ORDERED: GENTAMICIN IRRIGATION ONE ×3 (08:28)
[2018-06-24] MEDS ORDERED: Morphine Inj 4 MG/ML Vial IV.PUSH PRN (09:40)
[2018-06-24] MEDS ORDERED: Temazepam 15 MG Capsule PO PRN (09:40)
[2018-06-24] MEDS ORDERED: Bisacodyl 10 MG Supp RECTAL PRN (09:40)
[2018-06-24] MEDS ORDERED: Dextrose 50% in Water 50 ML Vial IV.PUSH PRN (09:40)
--- NOTE | 2018-06-24 09:51 | P.OP ---
- Preoperative Diagnosis (1) Osteoarthritis of right hip - Postoperative Diagnosis (1) Osteoarthritis of right hip Date of procedure: 06/24/18 Procedure: Right total hip arthroplasty, direct anterior exposure Anesthesia: GETA, local Surgeon: Renzo Mcclellan MD Military Technician: Hannah Cornell PA-C Operation and Findings: EBL: 600 cc INDICATION: This patient is a 57-year-old female with severe inflammatory changes of the right hip. There are some features suggestive of inflammatory arthropathy versus avascular necrosis. She is having debilitating pain and difficulty with ambulation. She now presents for surgical treatment. NOTE: Hannah Cornell PA-C was present for the entire surgical procedure as my first helper. In my medical opinion her skill and care was necessary for the proper management of this patient. COMPONENTS: COMPANY: [employer] CUP: [place], 54 mm, 100 series STEM: [place], size 9, standard offset HEAD: Ceramic, 36 mm, +5, 12/14 taper LINER: Altrex, 36, neutral PROCEDURE: This patient was brought to the operating room and anesthetized in the supine position. The patient was positioned on the [place] table with the operative leg extended and the contralateral leg held in proper position. The hip and leg was scrubbed with alcohol followed by Hibiclens followed by ChloraPrep and draped sterilely in the clean air suite. Preoperative fluoroscopic images were utilized. A templating x-ray was obtained and printed to be used during the case. A timeout was done and antibiotics were given within a routine time window. A 4 inch incision was made starting 2 cm distal and 2 cm lateral to the anterior superior iliac spine. The tensor fascia caleb fascia was identified and opened longitudinally in line with the incision. Deep retraction allowed good visualization in the interval between the tensor fascia caleb and the rectus and this was opened further. The posterior fascia was opened. Crossing vessels were coagulated appropriately. The anterior aspect of the hip capsule was identified. Retractors were placed above and below the capsule. The capsule was opened longitudinally. Stay sutures were utilized creating flaps for the anterior capsule. The femoral neck was cut at the right location and completed with an oscillating saw. The head and neck was removed and taken to the back table. The leg was externally rotated 60 degrees and traction placed on the extremity. The labrum was excised. A portion of the capsule was excised. Visibility was excellent. Retractors were positioned. Starting 6 mm from the final size reamer, we began reaming up to 1 mm from the anticipated size. This was visualized under fluoroscopy. A trial cup was positioned. This also was visualized under fluoroscopy and minor adjustments were made. The final preparation with a 54 reamer was utilized. The final cup was positioned in approximately 40 degrees of abduction and 20 degrees of forward flexion. This is visualized under fluoroscopy and was seated into the final position. Position was very satisfactory. A single hole eliminator was positioned followed by the plastic liner. The final solution was excellent. Traction was let off. The leg was brought into neutral rotation. A lifting took was positioned underneath the greater trochanter and proximal femur. The leg was maximally externally rotated and the foot drop to the floor across midline. Retractors were positioned. A box osteotome was used to gain entrance into the top of the femur. The canal was probed with a finder to ensure that we were within the canal. Successive broaching up to the final stem size was accomplished. Trial reduction showed excellent balancing. Adjustments were made. The wound was irrigated copiously and the canal irrigated. The final stem was inserted in proper orientation. A final trial reduction was performed, and the final head was impacted. The hip was reduced and with 60 degrees of external rotation the leg to be dropped to the floor without evidence of anterior subluxation. Intraoperative x-rays were obtained. Local anesthesia was utilized for a field block including posterior capsule, inferior capsule, cephalad capsule, region of the greater trochanter, tensor fascia caleb and subcutaneous tissue. The anterior capsule was repaired with interrupted #2 Tycron sutures. The fascia was run with 0 PDS on a loop. Subcutaneous tissue was approximated 2-0 Vicryl suture and skin with running intradermal 3-0 Vicryl followed by benzoin and Steri-Strips. A sterile dressing was applied. The patient was awakened and taken to the recovery room in satisfactory condition FINDINGS: There was severe inflammatory changes with remarkable synovitis of the hip. There were changes with significant flattening of the femoral head either related to avascular necrosis or inflammatory changes from hip arthritis. The final solution appeared to be excellent. Leg length appeared to be very satisfactory
--- NOTE | 2018-06-24 09:51 | P.DCO ---
- Physical Therapy Physical Therapy: Gait training (3 times per week for 2 weeks) Hip: Total hip, Protocol: Right Right Lower Extremity Weight Bearing: Weight bearing as tolerated - Case Management Consult Case Management Consult-Home Health: Yes - Certification Need for Home Health services: I have seen patient Madeline Juarez on 06/24/18. My clinical findings support the need for the requested home health care services because: Need for Home Health Services: High risk of falls Homebound Certification: I certify that my clinical findings support that this patient is homebound because: Homebound Certification: Unsteady gait/balance
[2018-06-24] MEDS ORDERED: oxyCODONE/Acetaminophen 10/325 Tablet PO PRN (09:57)
[2018-06-24] MEDS ORDERED: Post-op Orders (for Pharmacy) OTHER STA (10:03)
[2018-06-24] MEDS ORDERED: fentaNYL Citrate Inj 100 MCG/2 ML Ampul ONE (10:06)
[2018-06-24] MEDS ORDERED: *morphine SULFATE 8 MG/ML PERIprocedure ONLY ONE ×2 (10:10→11:00)
[2018-06-24] MEDS ORDERED: HYDROmorphone PF Inj 0.5 MG/0.5 ML Syringe ONE ×2 (11:39→12:00)
[2018-06-24] MEDS: Gabapentin 100 MG Capsule PO SCH (11:55)
[2018-06-24] MEDS: Gabapentin 300 MG Capsule PO SCH ×2 (11:55→20:49)
[2018-06-24] MEDS: Insulin NovoLIN Regular Correctional Sugar Inj SQ SCH ×3 (12:00→22:01)
--- NOTE | 2018-06-24 12:55 | XR ---
EXAM DATE: 06/24/2018 12:51 PM EST AGE/SEX: 57 years / Female INDICATIONS: Total right hip replacement. CLINICAL DATA: This is the patient's initial encounter. Patient reports that signs and symptoms have been present for 1 day and indicates a pain score of Nonresponsive. MEDICAL/SURGICAL HISTORY: Non-responsive. Non-responsive. COMPARISON: No prior exams available for comparison. FINDINGS: Total hip arthroplasty is in satisfactory position. The alignment is anatomic. CONCLUSION: Postsurgical changes as above. Electronically signed by: Sebastian Aleman MD Board Certified Radiologist 06/24/2018 12:54 PM EST
[2018-06-24] MEDS: ceFAZolin Inj 1 GM in Sodium Chlor 0.9% Inj 100 ML IV.SIG SCH ×2 (13:14→18:20)
--- NOTE | 2018-06-24 15:03 | P.CONIM ---
History of Present Illness Service: [facility] Consult date: 06/24/18 Reason for Consult: medical mgt Primary Care Provider: Solomon Sandoval DO Chief Complaint: right hip pain, elevated blood sugar History of Present Illness: This patient is a 57-year-old female with past medical history of neuropathy, diabetes mellitus type 2, HIV, hyperlipidemia, depression, and osteoarthritis with severe inflammatory changes of the right hip versus avascular necrosis. Patient admitted for right total hip arthroplasty via direct anterior exposure with Dr. Sanjay Rangel. Medicine team was consulted for medical management. Patient seen and examined sitting in the chair, stated pain is better controlled at this time, still have the nerve block. Patient denies any headache or dizziness, denies any chest pain or shortness of breath, denies any abdominal pain, nausea, vomiting, diarrhea or constipation. Patient had bowel movement before the surgery. Patient discussed her diabetes taking insulin at home. Patient also states that he she is HIV positive and was taking treatment and seeing ID doctor Dr. Torres with current CD4 count of 236. Patient denies any drug use. Patient stated quit smoking 2 years ago. Patient also admitted history of depression which she is taking Cymbalta, neuropathy which she is taking gabapentin and hyperlipidemia and was taking Lipitor. Patient denies any fever or chills. Family at bedside, father and stepmother Review of Systems Review of Systems: all other systems reviewed are negative [facility] Medical History Medical History Arthritis (Acute) Depression (Acute) Diabetes (Acute) E coli infection (Acute) HIV (human immunodeficiency virus infection) (Acute) High cholesterol (Acute) History of hysterectomy (Acute) Osteoarthritis (Acute) Peripheral nerve disorder (Acute) Wears glasses (Acute) Surgical History Surgical History History of left knee replacement (Acute) Social History Social History Substance History: No History of Abuse Second Hand Smoke Exposure: No Smoking Status: Former smoker How Often Do You Have a Drink Containing Alcohol: Never Recent Travel in [facility] within the Last 8 Weeks: Yes Recent Out of Country Travel within the Last 8 Weeks: No Medications and Allergies Allergies Allergy/AdvReac Type Severity Reaction Status Date / Time No Known Allergies Allergy Verified 06/24/18 06:01 Home Medications Medication Instructions Recorded Confirmed Type atorvastatin [Lipitor] 10 mg PO HS 11/10/17 06/24/18 History duloxetine [Cymbalta] 20 mg PO DAILY 11/10/17 06/24/18 History gabapentin 600 mg PO BID 11/10/17 06/24/18 History amitriptyline 100 mg PO HS 06/14/18 06/24/18 History opswewlvz-[id number]-[id number] ala 1 tab PO HS 06/14/18 06/24/18 History [Biktarvy] gabapentin 700 mg PO AC LUNCH 06/14/18 06/24/18 History insulin aspart U-100 [Novolog 5 - 20 unit SUBCUT TID PRN 06/14/18 06/24/18 History Flexpen U-100 Insulin] insulin glargine [Lantus U-100 40 unit SUBCUT HS 06/14/18 06/24/18 History Insulin] insulin glargine-lixisenatide 30 units SUBCUT HS 06/14/18 06/24/18 History [Soliqua 100/33] oxycodone-acetaminophen 1 tab PO Q8H PRN 06/14/18 06/24/18 History Active Medications: Active Medications Al Hydroxide/Mg Hydroxide (Milk Of Yenifer Santiago) 30 ml PO BID PRN PRN Reason: Mild Constipation Amitriptyline HCl (Elavil) 100 mg PO HS [facility] Aspirin (Aspirin Chew) 81 mg PO BID [facility] Atorvastatin Calcium (Lipitor) 10 mg PO HS [facility] Bisacodyl (Dulcolax Supp) 10 mg RECTAL DAILY PRN PRN Reason: SEVERE CONSITIPATION Chlorhexidine Gluconate (Hibiclens 4% Topical) 1 applicatio TOPICAL ONCE [facility] Stop: 06/28/18 05:44 Last Admin: 06/24/18 06:00 Dose: 1 applicatio Sodium Chloride 60 ml/Bupivacaine Liposome 20 ml/Bupivacaine HCl/Epinephrine Bitart 20 ml 0 ml P-ARTICULR UNSCH X1 [facility] Stop: 06/24/18 15:00 Last Admin: 06/24/18 08:27 Dose: 60 bag Dextrose (D50w Vial) 50 ml IV.PUSH UNSCH PRN PRN Reason: for Blood Glucose < 70 mg/dL Diphenhydramine HCl (Benadryl) 25 mg PO Q6H PRN PRN Reason: ITCHING Duloxetine HCl (Cymbalta) 20 mg PO DAILY [facility] Gabapentin (Neurontin) 600 mg PO BID [facility] Gabapentin (Neurontin) 600 mg PO AC LUNCH [facility] Last Admin: 06/24/18 11:55 Dose: 600 mg Gabapentin (Neurontin) 100 mg PO AC LUNCH [facility] Last Admin: 06/24/18 11:55 Dose: 100 mg Glucagon (Glucagon Inj) 1 mg OTHER UNSCH PRN PRN Reason: for Blood Glucose < 70 mg/dL Vancomycin HCl 1,000 mg/ (Sodium Chloride) 250 mls @ 250 mls/hr IV.SIG TANK CLEANER [facility] Stop: 06/27/18 05:43 Last Infusion: 06/24/18 08:29 Dose: Infused Cefazolin Sodium/Dextrose (Ancef 2 Gm Premix Inj) 2 gm in 50 mls @ 100 mls/hr IV.SIG TANK CLEANER [facility] Stop: 06/28/18 05:59 Last Infusion: 06/24/18 08:29 Dose: Infused Lactated Ringer's (Lr 1000 Ml Inj) 1,000 mls @ 80 mls/hr IV.CONT .[id number] [facility] Last Admin: 06/24/18 10:17 Dose: 80 mls/hr Cefazolin Sodium 1 gm/ Sodium (Chloride) 100 mls @ 200 mls/hr IV.SIG Q6H [facility] Stop: 06/25/18 01:29 Last Infusion: 06/24/18 14:00 Dose: Infused Insulin Human Regular (Novolin R Correctional Sugar Inj) 0 units SQ ACHS [facility]; Protocol Last Admin: 06/24/18 12:00 Dose: Not Given Lactulose (Lactulose Liq) 30 ml PO DAILY PRN PRN Reason: SEVERE CONSITIPATION Miscellaneous Information (Misc Nursing Information) 0 each OTHER UNSCH PRN PRN Reason: SEE LABEL COMMENTS Stop: 06/25/18 10:02 Morphine Sulfate (Morphine Inj) 4 mg IV.PUSH Q2H PRN PRN Reason: BREAKTHROUGH PAIN Multivitamins/Minerals (Theragran-M) 1 tab PO BID [facility] Stop: 08/23/18 20:59 Ondansetron HCl (Zofran Inj) 4 mg IV.PUSH Q6H PRN PRN Reason: NAUSEA OR VOMITING Oxycodone/Acetaminophen (Percocet 10/325 Mg) 2 tab PO Q4H PRN PRN Reason: PAIN SCALE 6 TO 10 Oxycodone/Acetaminophen (Percocet 10/325 Mg) 1 tab PO Q4H PRN PRN Reason: PAIN SCALE 1 TO 5 Last Admin: 06/24/18 11:15 Dose: 1 tab Senna/Docusate Sodium (Rox-Colace) 1 tab PO BID [facility] Sennosides (Senokot) 17.2 mg PO BID PRN PRN Reason: Moderate Constipation Sodium Chloride (Ns Flush) 2 ml IV.FLUSH BID [facility] Sodium Chloride (Ns Flush) 2 ml IV.FLUSH PRN PRN PRN Reason: FLUSH AFTER USING IV ACCESS Temazepam (Restoril) 15 mg PO HS PRN PRN Reason: INSOMNIA Physical Exam Vital signs: Vital Signs 06/24/18 06:09 06/24/18 10:00 06/24/18 10:15 Temperature 98.4 F 97.6 F Pulse Rate 85 93 H 95 H Respiratory Rate 18 16 14 Blood Pressure 111/53 L 112/65 108/57 L Pulse Oximetry 97 99 98 06/24/18 10:24 06/24/18 10:30 06/24/18 11:00 Temperature 97.5 F L Pulse Rate 96 H 94 H Respiratory Rate 14 13 14 Blood Pressure 108/64 115/59 L Pulse Oximetry 97 99 06/24/18 12:00 06/24/18 13:11 Temperature 97.7 F Pulse Rate 107 H Respiratory Rate 19 16 Blood Pressure 94/54 L Pulse Oximetry 99 Intake & Output 06/23/18 06/24/18 06/24/18 18:59 06:59 18:59 Intake Total 3430.1 / 3430.1 Output Total 600 / 600 Balance 2830.1 / 2830.1 Weight 100.9 kg Intake: IV 1510.1 / 1510.1 LR 1000 mL Inj 1,000 ML @ 30 1000 / 1000 mls/hr IV.SIG .Q24H [facility] Rx#: [id number] Cyklokapron Inj 1,010 MG In NS 110.1 / 110.1 Inj 100 ML @ 200 mls/hr IV.SIG ONCE [facility] Rx#:[id number] Vancomycin Inj 1,000 MG In NS 250 / 250 Inj 250 ML @ 250 mls/hr IV.SIG TANK CLEANER [facility] Rx#:[id number] Ancef 2 GM Premix Inj 2 gm In 50 / 50 50 ml @ 100 mls/hr IV.SIG TANK CLEANER [facility] Rx#:[id number] Ancef Inj 1 GM In NS Inj 100 ML 100 / 100 @ 200 mls/hr IV.SIG Q6H [facility] Rx #:[id number] Oral 220 / 220 Anesthesia Amount 1700 / 1700 Output: Estimated Blood Loss 600 / 600 Other: # Incontinent Voids 2 Weight On Admission 100.9 kg Narrative: GENERAL: Well-developed, well-nourished, obese female, sitting in a chair, in no acute distress SKIN: Warm and dry. HEAD: Atraumatic. Normocephalic. EYES: Pupils equal and round. No scleral icterus. No injection or drainage. ENT: No nasal bleeding or discharge. Mucous membranes pink and moist. NECK: Trachea midline. No JVD. CARDIOVASCULAR: Regular rate and rhythm. RESPIRATORY: No accessory muscle use. Clear to auscultation. Breath sounds equal bilaterally. GASTROINTESTINAL: Abdomen obese, soft, non-tender, nondistended. Hepatic and splenic margins not palpable. MUSCULOSKELETAL: Extremities without clubbing, cyanosis. Right hip incision dressed clean dry and intact, no drainage no redness noted NEUROLOGICAL: Awake and alert. No obvious cranial nerve deficits. Motor grossly within normal limits. Moving all 4 extremities except right lower extremity with limited range of motion. Normal speech. PSYCHIATRIC: Appropriate mood and affect; insight and judgment normal. Results Labs CBC & Chem 7: 06/25/18 06:01 06/25/18 06:01 Imaging Impressions Hip X-Ray 06/24/18 00:00 CONCLUSION: Postsurgical changes as above. ABG Impressions Hip X-Ray 06/24/18 00:00 CONCLUSION: Postsurgical changes as above. Assessment and Plan Plan This patient is a 57-year-old female with past medical history of neuropathy, diabetes mellitus type 2, HIV, hyperlipidemia, depression, and osteoarthritis with severe inflammatory changes of the right hip versus avascular necrosis. Patient admitted for right total hip arthroplasty via direct anterior exposure with Dr. Sanjay Rangel. Medicine team was consulted for medical management. Osteoarthritis of the right hip Right total hip arthroplasty, direct anterior exposure on 06/24/[address] Mcclellan Management by orthopedic team Physical therapy -Pain management with bowel regimen -Continue postop prophylactic antibiotic treatment with cefazolin -DVT prophylaxis with aspirin twice daily per Ortho recommendation Diabetes mellitus type 2 -Blood sugar uncontrolled -Continue Lantus at a lower dose, will resume home dose upon discharge -Monitor blood sugar before meals and at bedtime, with insulin sliding scale Neuropathy -Continue home medication, gabapentin Depression -Continue home medication, Elavil and Cymbalta Hyperlipidemia Continue home Lipitor HIV positive -Hold home medication for now will resume upon discharge DVT prophylaxis: Aspirin twice daily per Orth O recommendations Code Status: Focal Discussed Condition With: Patient, family and nurse Discharge Planning: For discharge planning with home health care, per PT and Ortho recommendation Attending Attestation The exam, history, and the medical decision-making described in the above note were completed with the assistance of the mid-level provider. I reviewed and agree with the findings presented. I attest that I had a [id number] encounter with the patient on the same day, and personally performed and documented my assessment and findings in the medical record. Patient reports she is feeling okay. Pain is controlled. Eager to go home. On exam, she is no acute distress Heart normal S1-S2, no significant heart murmurs Lungs clear to auscultation bilaterally. Right hip dressing is intact. Neurovascularly intact distally. Moves all the extremities without issues. Patient status post right hip arthroplasty. Doing well postop. Continue home medications for diabetes, depression, and HIV. Recommend outpatient follow-up with PCP and orthopedics.
[2018-06-24] MEDS: oxyCODONE/Acetaminophen 10/325 Tablet PO PRN ×3 (15:15→23:51)
[2018-06-24] MEDS: Multivitamin/Minerals Therapeutic Tablet PO SCH (20:49)
[2018-06-24] MEDS: Senna/Docusate Sodium 8.6/50 MG Tablet PO SCH (20:49)
[2018-06-24] MEDS ORDERED: Insulin Detemir Inj 1,000 UNIT/10 ML Vial SQ SCH (21:00)
[2018-06-24] MEDS ORDERED: Amitriptyline 100 MG Tablet PO SCH (21:00)
[2018-06-25 01:25] VITALS: RESP 18
[2018-06-25] MEDS: ceFAZolin Inj 1 GM in Sodium Chlor 0.9% Inj 100 ML IV.SIG SCH (01:52)
[2018-06-25] MEDS: oxyCODONE/Acetaminophen 10/325 Tablet PO PRN ×2 (06:27→15:06)
[2018-06-25 07:07] LABS: Hematocrit 24.2 % (35.0-46.0); Hemoglobin 8.2 gm/dL (11.6-15.3); Mean Corpuscular Hemoglobin 29.1 pg (27.0-34.0); Mean Corpuscular Volume 85.7 fL (80.0-100.0); Mean Platelet Volume 7.5 fL (7.0-11.0); Platelet Count 125 th/mm3 (150-450); Red Blood Count 2.83 mil/mm3 (4.00-5.30); Red Cell Distribution Width 16.4 % (11.6-17.2); White Blood Count 8.2 th/mm3 (4.0-11.0)
[2018-06-25 07:34] LABS: Anion Gap 6 meq/L (5-15); Blood Urea Nitrogen 16 mg/dL (7-18); Calcium 8.2 mg/dL (8.5-10.1); Carbon Dioxide 30.4 meq/L (21.0-32.0); Chloride 104 meq/L (98-107); Glomerular Filtration Rate Greater Than 89 mL/min (>89); Glucose,Random 155 mg/dL (74-106); Potassium 4.4 meq/L (3.5-5.1); Sodium 140 meq/L (136-145)
--- NOTE | 2018-06-25 07:48 | P.PNOP ---
Subjective Interval history: Doing well. She states that he preop pain is 'so much better'. She is very pleased. She denies any overnight concerns. No CP, SOB or acute abd pain. Physical Exam Vital signs: Vital Signs 06/24/18 10:00 06/24/18 10:15 06/24/18 10:24 Temperature 97.6 F Pulse Rate 93 H 95 H Respiratory Rate 16 14 14 Blood Pressure 112/65 108/57 L Pulse Oximetry 99 98 06/24/18 10:30 06/24/18 11:00 06/24/18 12:00 Temperature 97.5 F L 97.7 F Pulse Rate 96 H 94 H 107 H Respiratory Rate 13 14 19 Blood Pressure 108/64 115/59 L 94/54 L Pulse Oximetry 97 99 99 06/24/18 13:11 06/24/18 15:53 06/24/18 16:01 Temperature 97.8 F Pulse Rate 85 Respiratory Rate 16 16 16 Blood Pressure 93/55 L Pulse Oximetry 96 06/24/18 20:02 06/25/18 00:09 06/25/18 03:43 Temperature 99.2 F 98.7 F 97.8 F Pulse Rate 98 H 113 H 108 H Respiratory Rate 16 18 18 Blood Pressure 121/70 127/71 112/53 L Pulse Oximetry 94 L 96 94 L Intake & Output 06/24/18 06/25/18 06/25/18 18:59 06:59 18:59 Intake Total 3770.1 / 3770.1 820 / 820 Output Total 600 / 600 Balance 3170.1 / 3170.1 820 / 820 Weight 102.4 kg Intake: IV 1610.1 / 1610.1 100 / 100 LR 1000 mL Inj 1,000 ML @ 30 1000 / 1000 mls/hr IV.SIG .Q24H [facility] Rx#: [id number] Cyklokapron Inj 1,010 MG In NS 110.1 / 110.1 Inj 100 ML @ 200 mls/hr IV.SIG ONCE [facility] Rx#:[id number] Vancomycin Inj 1,000 MG In NS 250 / 250 Inj 250 ML @ 250 mls/hr IV.SIG REGISTERED NURSE RENAL [facility] Rx#:[id number] Ancef 2 GM Premix Inj 2 gm In 50 / 50 50 ml @ 100 mls/hr IV.SIG REGISTERED NURSE RENAL [facility] Rx#:[id number] Ancef Inj 1 GM In NS Inj 100 ML 200 / 200 100 / 100 @ 200 mls/hr IV.SIG Q6H [facility] Rx #:[id number] Oral 460 / 460 720 / 720 Anesthesia Amount 1700 / 1700 Output: Estimated Blood Loss 600 / 600 Other: # Voids 2 3 # Incontinent Voids 2 Date of Last Bowel Movement 06/24/18 Narrative: Sitting up in bed NAD RLE Hip dressing c/d/i, no drainage, no erythema +motor at distal, +sens, +nvi Neg homans - Constitutional no acute distress Results - Labs CBC & Chem 7: 06/25/18 06:01 06/25/18 06:01 Laboratory Results - last 24 hr 06/24/18 06/24/18 06/24/18 10:16 16:56 20:47 WBC RBC Hgb Hct MCV MCH MCHC RDW Plt Count MPV Sodium Potassium Chloride Carbon Dioxide Anion Gap BUN Creatinine Estimated GFR POC Glucose 130 H 243 H 243 H Random Glucose Calcium 06/25/18 06/25/18 06:01 06:01 WBC 8.2 RBC 2.83 L Hgb 8.2 L Hct 24.2 L MCV 85.7 MCH 29.1 MCHC 34.0 RDW 16.4 Plt Count 125 L MPV 7.5 Sodium 140 Potassium 4.4 Chloride 104 Carbon Dioxide 30.4 Anion Gap 6 BUN 16 Creatinine 0.58 Estimated GFR Greater than 89 POC Glucose Random Glucose 155 H Calcium 8.2 L - Imaging Impressions Hip X-Ray 06/24/18 00:00 CONCLUSION: Postsurgical changes as above. - Procedures Right total hip arthroplasty, anterior approach Assessment and Plan - Ortho Post Op Day # 1 - Assessment and Plan pod#1 s/p R MACK, anterior Ortho stable. Doing well. Very pleased overall. Ok to d/c home w [facility] later today after PT class. PT - WBAT RLE. Anterior mack precautions. Hold dressing changes unless saturated. ASA 81mg bid for 4 weeks. Ice to right hip bid for 7 days. F/U in 2 weeks as scheduled.
--- NOTE | 2018-06-25 07:49 | P.DS ---
Date of admission: 06/24/18 09:40 Primary care physician: Solomon Sandoval DO Attending physician on discharge: Renzo Mcclellan Anticipated date of discharge: 06/25/18 Brief History from admission: Ms. Juarez has had ongoing right hip pain for approximately 2 years. She sought out treatment of her condition. Xrays were taken showing advancing arthritis of her right hip. She limited her activities greatly and began using a cane. Her pain did not respond to OTC medications. She was eventually prescribed gabapentin and oxycodone. Her HgA1C was quite high but after 3 months of management that improved greatly. Eventually surgical treatment was recommended in the form of right total hip arthroplasty, anterior approach. The patient agreed and now presents for the above. DS: Diagnosis - Discharge Diagnosis (1) Osteoarthritis of right hip Status: Acute DS: Medications - Discharge Medications Prescriptions: aspirin 81 mg PO BID 30 Days #60 tab hydrocodone-acetaminophen 1 tab PO Q4H PRN #42 tab PRN Reason: Acute Pain oxycodone-acetaminophen 1 tab PO Q4H PRN #42 tab PRN Reason: Acute Pain DS: Summary Hospital Course: Surgical treatment was performed on the day of admission without complication. She recovered well in PACU and was transferred to the orthopaedic floor. Pain was controlled with IV and oral medications. She was compliant with physical therapy and all total hip precautions. After 1 day she was found to be stable and discharge home with home therapy. She was educated to continue her therapy , to ice the operative hip twice daily and to pursue a high fiber, low carb diet to assist in controlling her blood sugars. She was given a prescription of oxycodone and ASA 81mg. - Time Spent with Patient Total time spent providing and/or coordinating discharge services: Less than 30 minutes Exam Vital signs: Vital Signs 06/24/18 10:00 06/24/18 10:15 06/24/18 10:24 Temperature 97.6 F Pulse Rate 93 H 95 H Respiratory Rate 16 14 14 Blood Pressure 112/65 108/57 L Pulse Oximetry 99 98 06/24/18 10:30 06/24/18 11:00 06/24/18 12:00 Temperature 97.5 F L 97.7 F Pulse Rate 96 H 94 H 107 H Respiratory Rate 13 14 19 Blood Pressure 108/64 115/59 L 94/54 L Pulse Oximetry 97 99 99 06/24/18 13:11 06/24/18 15:53 06/24/18 16:01 Temperature 97.8 F Pulse Rate 85 Respiratory Rate 16 16 16 Blood Pressure 93/55 L Pulse Oximetry 96 06/24/18 20:02 06/25/18 00:09 06/25/18 03:43 Temperature 99.2 F 98.7 F 97.8 F Pulse Rate 98 H 113 H 108 H Respiratory Rate 16 18 18 Blood Pressure 121/70 127/71 112/53 L Pulse Oximetry 94 L 96 94 L Intake & Output 06/24/18 06/25/18 06/25/18 18:59 06:59 18:59 Intake Total 3770.1 / 3770.1 820 / 820 Output Total 600 / 600 Balance 3170.1 / 3170.1 820 / 820 Weight 102.4 kg Intake: IV 1610.1 / 1610.1 100 / 100 LR 1000 mL Inj 1,000 ML @ 30 1000 / 1000 mls/hr IV.SIG .Q24H [facility] Rx#: [id number] Cyklokapron Inj 1,010 MG In NS 110.1 / 110.1 Inj 100 ML @ 200 mls/hr IV.SIG ONCE [facility] Rx#:[id number] Vancomycin Inj 1,000 MG In NS 250 / 250 Inj 250 ML @ 250 mls/hr IV.SIG SECURITY MANAGEMENT SPECIALIST MARIAN Rx#:[id number] Ancef 2 GM Premix Inj 2 gm In 50 / 50 50 ml @ 100 mls/hr IV.SIG SECURITY MANAGEMENT SPECIALIST MARIAN Rx#:[id number] Ancef Inj 1 GM In NS Inj 100 ML 200 / 200 100 / 100 @ 200 mls/hr IV.SIG Q6H MARIAN Rx #:[id number] Oral 460 / 460 720 / 720 Anesthesia Amount 1700 / 1700 Output: Estimated Blood Loss 600 / 600 Other: # Voids 2 3 # Incontinent Voids 2 Date of Last Bowel Movement 06/24/18 Results Procedures completed during hospitalization: Right total hip arthroplasty, anterior approach Labs on day of discharge: Labs from last 24 hours 06/25/18 06/25/18 06/24/18 06:01 06:01 20:47 WBC 8.2 RBC 2.83 L Hgb 8.2 L Hct 24.2 L MCV 85.7 MCH 29.1 MCHC 34.0 RDW 16.4 Plt Count 125 L MPV 7.5 Sodium 140 Potassium 4.4 Chloride 104 Carbon Dioxide 30.4 Anion Gap 6 BUN 16 Creatinine 0.58 Estimated GFR Greater than 89 POC Glucose 243 H Random Glucose 155 H Calcium 8.2 L 06/24/18 06/24/18 16:56 10:16 WBC RBC Hgb Hct MCV MCH MCHC RDW Plt Count MPV Sodium Potassium Chloride Carbon Dioxide Anion Gap BUN Creatinine Estimated GFR POC Glucose 243 H 130 H Random Glucose Calcium - Impressions ITS Impressions Hip X-Ray 06/24/18 00:00 CONCLUSION: Postsurgical changes as above. Discharge Plan - Discharge Disposition Patient Disposition: W/Home Health Service - Discharge Condition Condition: Good - Discharge Order Discharge Orders: Discharge Order (Routine); Ordered 06/25/18 Ordered By: Renzo Mcclellan - Discharge Details Discharge Comment: CBC in 3 days - Physicians Team Primary Care Provider: Solomon Sandoval Attending Provider: Renzo Mcclellan Other Providers: Maral Gallardo MD ; [facility] - Rxs /Orders / Referrals /Forms Prescriptions: New aspirin 81 mg Tablet,Chewable 81 mg PO BID 30 Days Qty: 60 RF: 0 hydrocodone-acetaminophen 7.5-325 mg Tablet 1 tab PO Q4H PRN (Reason: Acute Pain) Qty: 42 RF: 0 oxycodone-acetaminophen 10-325 mg Tablet 1 tab PO Q4H PRN (Reason: Acute Pain) Qty: 42 RF: 0 Continue amitriptyline 100 mg Tablet 100 mg PO HS atorvastatin [Lipitor] 10 mg Tablet 10 mg PO HS pmryqyjgq-fcydimeo-jtcxzvn ala [Biktarvy] 50-200-25 mg Tablet 1 tab PO HS duloxetine [Cymbalta] 20 mg Capsule,Delayed Release(Dr/Ec) 20 mg PO DAILY gabapentin 600 mg Tablet 600 mg PO BID gabapentin 600 mg Tablet 700 mg PO AC LUNCH insulin aspart U-100 [Novolog Flexpen U-100 Insulin] 100 unit/mL Insulin Pen 5 - 20 unit SUBCUT TID PRN (Reason: blood sugar) insulin glargine [Lantus U-100 Insulin] 100 unit/mL Solution 40 unit SUBCUT HS insulin glargine-lixisenatide [Soliqua 100/33] 100 unit-33 mcg/mL Insulin Pen 30 units subcut HS oxycodone-acetaminophen 10-325 mg Tablet 1 tab PO Q8H PRN (Reason: Pain) Ambulatory Orders / Order Sets / DME: Adjustable Commode 3-in-1 (1 each) (Routine) Location: Determined by Patient Ordered By: Renzo Mcclellan Walker With Front Wheels (1 each) (Routine) Location: Determined by Patient Ordered By: Renzo Mcclellan Complete Blood Count NO Diff (Routine) Timeframe: 3 Days Location: Determined by Patient Ordered By: Ling Delcid Referrals: Solomon Sandoavl DO [Primary Care Provider] - See Instructions (Follow up in 3 days CBC in 3 days) - Discharge Instructions Patient Printed Instructions: Hydrocodone/Acetaminophen (By mouth), Pain Management After Surgery (DC), Total Hip Replacement (DC) - Post Discharge Care Plan Care Plan Goals: Discharge Care Plan Goals for RIGHT (anterior) Total Hip Replacement You had a hip replacement surgery. This means your natural hip was replaced with an artificial joint (prosthesis). You may be recovering at home or in a rehabilitation facility. Either way, you must take care of your new hip. Here are some goals to help you heal well. Directions to Meet your Goals: 1. Activity & Exercises: * Take pain medicine as directed by your doctor. * Dont drive until your doctor says its OK. And never drive while taking opioid pain medicine. * Wear the support stockings you were given in the hospital as directed by your surgeon. * Dont sit for more than 30 to 45 minutes at one time. * Dont lean forward while sitting. * Dont cross your legs. * Keep your feet flat on the floor. Dont turn your foot or leg inward. This stresses your hip joint. * Use an elevated toilet seat for 6 weeks after surgery. * Nap if you are tired, but dont stay in bed all day. * Sit on a firm cushion when you ride in a car and avoid sitting too low. Try not to bend your hip too much when getting in and out of the car. 2. Prevent Falls/Injury: * Follow your doctors orders regarding how much weight to put on the affected leg. * Dont bend at the hip when you bend over. Don't bend at the waist to put on socks and shoes. And avoid picking up items from the floor. * Use a cane, crutches, a walker, or handrails until your balance, flexibility, and strength improve. And remember to ask for help from others when you need it. * Free up your hands so that you can use them to keep balance. Use a solo pack , apron, or pockets to carry things. * Arrange your household to keep the items you need handy. Keep everything else out of the way. * Remove items that may cause you to fall, such as throw rugs and electrical cords. * Use nonslip bath mats, grab bars, an elevated toilet seat, and a shower chair in your bathroom * Sit on a shower stool or chair when you shower to keep from falling. 3. Precautions: * Prevent infection. Any infection will need to be treated immediately. Call your doctor right away if you think you might have an infection. * Tell your dentist that you have an artificial joint and take antibiotics as prescribed before any dental work. * Tell all your healthcare providers about your artificial joint before any medical procedure. * Maintain a healthy weight. Get help to lose any extra pounds. Added body weight puts stress on the joints. 4. Incision Care: * Prevent infection by washing your hands often. If an infection occurs, it will need to be treated right away. * Call your doctor right away if you think you may have an infection. Symptoms include a fever or an incision that leaks white, green, or yellow fluid. * Don't soak your incision in water until your doctor says its OK. This means no hot tubs, bathtubs, or swimming pools. * Follow your doctor's instructions for changing the dressing. * Dont rub the incision, or apply creams or lotions to it. * If you notice any redness or drainage around the bandage site, contact your surgeon's office immediately. 5. Follow-Up: Do Not miss your follow-up appointment. Keep up with all your appointments and yearly check ups When to call your doctor: Call your doctor right away if you have: Hip pain gets worse Pain or swelling in your calf or leg not related to your incision Tenderness or redness in your calf Fever of 100.4F (38C) or higher, or as directed by your healthcare provider Shaking chills Swelling or redness at the incision site gets worse Fluid draining from the incision Call 911: Call 911 right away if you have: Chest pain Shortness of breath Any pain or tenderness in your calf
[2018-06-25] MEDS ORDERED: Influenza (Quadrivalent) Vaccine 0.5 ML Syringe IM ONE (09:00)
[2018-06-25] MEDS: Multivitamin/Minerals Therapeutic Tablet PO SCH (09:58)
[2018-06-25] MEDS: Senna/Docusate Sodium 8.6/50 MG Tablet PO SCH (09:58)
[2018-06-25] MEDS: Gabapentin 300 MG Capsule PO SCH ×2 (09:59→12:20)
--- NOTE | 2018-06-25 10:53 | P.PNIM ---
Subjective Interval history: Follow-up for osteoarthritis/status post right hip total arthroplasty, neuropathy, diabetes mellitus type 2, HIV, hyperlipidemia, and depression. Patient seen and examined ambulating in the hallway with physical therapy, doing well. Patient stated ready to go home with home health care. Right hip pain controlled with pain medication. Patient denies any fever or chills, denies any abdominal pain, nausea, or vomiting. Patient stated had a good bowel movement yesterday. Discussed discharge planning, home health care and medications. Physical Exam Vital signs: Vital Signs 06/24/18 11:00 06/24/18 12:00 06/24/18 13:11 Temperature 97.5 F L 97.7 F Pulse Rate 94 H 107 H Respiratory Rate 14 19 16 Blood Pressure 115/59 L 94/54 L Pulse Oximetry 99 99 06/24/18 15:53 06/24/18 16:01 06/24/18 20:02 Temperature 97.8 F 99.2 F Pulse Rate 85 98 H Respiratory Rate 16 16 16 Blood Pressure 93/55 L 121/70 Pulse Oximetry 96 94 L 06/25/18 00:09 06/25/18 03:43 06/25/18 08:00 Temperature 98.7 F 97.8 F 98.8 F Pulse Rate 113 H 108 H 101 H Respiratory Rate 18 18 18 Blood Pressure 127/71 112/53 L 108/59 L Pulse Oximetry 96 94 L 96 Intake & Output 06/24/18 06/25/18 06/25/18 18:59 06:59 18:59 Intake Total 3770.1 / 3770.1 820 / 820 Output Total 600 / 600 Balance 3170.1 / 3170.1 820 / 820 Weight 102.4 kg Intake: IV 1610.1 / 1610.1 100 / 100 LR 1000 mL Inj 1,000 ML @ 30 1000 / 1000 mls/hr IV.SIG .Q24H [facility] Rx#: [id number] Cyklokapron Inj 1,010 MG In NS 110.1 / 110.1 Inj 100 ML @ 200 mls/hr IV.SIG ONCE MARIAN Rx#:[id number] Vancomycin Inj 1,000 MG In NS 250 / 250 Inj 250 ML @ 250 mls/hr IV.SIG HEATER OPERATOR HELPER [facility] Rx#:[id number] Ancef 2 GM Premix Inj 2 gm In 50 / 50 50 ml @ 100 mls/hr IV.SIG HEATER OPERATOR HELPER [facility] Rx#:[id number] Ancef Inj 1 GM In NS Inj 100 ML 200 / 200 100 / 100 @ 200 mls/hr IV.SIG Q6H MAR[facility] Rx #:[id number] Oral 460 / 460 720 / 720 Anesthesia Amount 1700 / 1700 Output: Estimated Blood Loss 600 / 600 Other: # Voids 2 3 # Incontinent Voids 2 Date of Last Bowel Movement 06/24/18 Narrative: GENERAL: Well-developed, well-nourished, obese female, sitting in a chair, in no acute distress SKIN: Warm and dry. HEAD: Atraumatic. Normocephalic. EYES: Pupils equal and round. No scleral icterus. No injection or drainage. ENT: No nasal bleeding or discharge. Mucous membranes pink and moist. NECK: Trachea midline. No JVD. CARDIOVASCULAR: Regular rate and rhythm. RESPIRATORY: No accessory muscle use. Clear to auscultation. Breath sounds equal bilaterally. GASTROINTESTINAL: Abdomen obese, soft, non-tender, nondistended. Hepatic and splenic margins not palpable. MUSCULOSKELETAL: Extremities without clubbing, cyanosis. Right hip incision dressed clean dry and intact, no drainage no redness noted NEUROLOGICAL: Awake and alert. No obvious cranial nerve deficits. Motor grossly within normal limits. Moving all 4 extremities except right lower extremity with limited range of motion. Normal speech. PSYCHIATRIC: Appropriate mood and affect; insight and judgment normal. Results Labs CBC & Chem 7: 06/25/18 14:31 06/25/18 06:01 Imaging Imaging: Impressions Hip X-Ray 06/24/18 00:00 CONCLUSION: Postsurgical changes as above. Procedures Procedures: Right total hip arthroplasty, anterior approach Assessment and Plan (1) Osteoarthritis of right hip: Code(s): M16.11 - Unilateral primary osteoarthritis, right hip Status: Acute Plan This patient is a 57-year-old female with past medical history of neuropathy, diabetes mellitus type 2, HIV, hyperlipidemia, depression, and osteoarthritis with severe inflammatory changes of the right hip versus avascular necrosis. Patient admitted for right total hip arthroplasty via direct anterior exposure with Dr. Sanjay Rangel. Medicine team was consulted for medical management. Osteoarthritis of the right hip Right total hip arthroplasty, direct anterior exposure on 06/24/[address] Mcclellan -Management by orthopedic team -Physical therapy -Pain management with bowel regimen -Continue postop prophylactic antibiotic treatment with cefazolin -DVT prophylaxis with aspirin twice daily per Ortho recommendation -Follow-up with Ortho/ Dr Mccelllan in 2 weeks -WBAT with anterior precautions -may have ice ro right hip x 7 days -dressing changes per ortho recommendation: Hold dressing changes unless saturated. Post Op Anemia -recheck H/H -May discharge if hemoglobin greater than 8.2. Recommend recheck CBC in 3 days and follow-up with primary care physician Diabetes mellitus type 2 -Blood sugar uncontrolled -Continue Lantus at a lower dose, will resume home dose upon discharge -Monitor blood sugar before meals and at bedtime, with insulin sliding scale -Follow-up with PCP Neuropathy -Continue home medication, gabapentin Depression -Continue home medication, Elavil and Cymbalta Hyperlipidemia Continue home Lipitor HIV positive -Hold home medication for now will resume upon discharge -Follow-up with ID DVT prophylaxis: Aspirin twice daily per Orth O recommendations Discharge pending lab results H/H. Thank you for your consultation. Discharge Planning: Sinus for discharge planning with home health care, per PT and Ortho recommendation
[2018-06-25] MEDS: Insulin NovoLIN Regular Correctional Sugar Inj SQ SCH ×3 (11:59→17:57)
[2018-06-25] MEDS: Gabapentin 100 MG Capsule PO SCH (12:20)
[2018-06-25 12:38] VITALS: BP 113/65; PULSE 100; TEMP 97.8; O2SAT 95
[2018-06-25 15:08] LABS: Hematocrit 25.7 % (35.0-46.0); Hemoglobin 8.6 gm/dL (11.6-15.3)
== END 2018-06-25 18:41 | disposition home health service (06) | DRG 470 ==
LOC: HSDC 05:14 → EDSTATUS 07:30 → HSDI 09:40 → N06 12:42
PROVIDERS: ADMIT Orthopaedic Surgery Orthopaedic Surgery of the Spine; ATTEND Orthopaedic Surgery Orthopaedic Surgery of the Spine
CPT/HCPCS: 73502; 76000; 80048; 81001; 82948; 82962; 85014; 85018; 85027; 86850; 86900; 86901; 87086; 90658; 90686; 94150; 97110; 97116; 97150; 97163; C1776; C9290; J0131; J0690; J1100; J1170; J1580; J2270; J2370; J2405; J2704; J3010; J3370; J7050; J7120; Q2038